=== PATIENT | female | born 1955 | race Caucasian/White ===

== ENCOUNTER 2021-10-22 02:25 | Day surgery (SDC) | payer MEDICARE, SELFPAY ==
[2021-10-19 08:19] VITALS: BMI 39.5
--- NOTE | 2021-10-19 08:53 | PC.NURSE ---
Report to the Outpatient Waiting Room, entrance under the green pavilion located off [facility], at time _1100 on date __10/22/21 . OR Time: 1300 (1 PM)___. - You and your visitor will be asked to self-screen and do not enter if you have any COVID symptoms. - Only one visitor and NO children visitors are allowed at this time. - The patient visitor is requested to leave or wait in car when not with patient due to restrictions. - A mask is required within the hospital. Patients may have clear liquids (water, carbonated beverages, clear teas, apple juice) until 3 hours prior to surgery (1000 AM) with a maximum of 20 ounces. - No food from midnight until time of surgery - Infants may have breast milk until 4 hours before surgery, infant formula 6 hours prior to surgery. - Children will be allowed to drink immediately following surgery. If applicable, please bring a bottle or sippy cup to assist with drinking. Juice, water, soda, and popsicles are readily available. For infants on formula, please bring formula the day of surgery. Pacifiers are allowed. Take the following medications with a SIP of water the morning of surgery: N/A Medications to discontinue per physician N/A Date to take last dose Please no make-up, nail yi, hairspray, perfume, deodorant, or body powder the day of surgery. No jewelry (including any body piercings) or valuables the day of surgery, leave them at home. Please take a shower or bath the night before, or the morning of, surgery with an antibacterial soap. Wear comfortable, loose fitting clothing. Children are encouraged to wear pajamas. - Jewelry must be removed prior to entering the operating room. Rings and piercings that are not removed may be cut off. - The hospital will not accept responsibility for valuables. - Please leave all valuables, including medications, at home the day of surgery. If you are going home after surgery, a licensed milk pickup truck driver must drive you home. - NO public transportation without another adult. - We recommend that an adult stay with you for 24 hours following discharge. - We also recommend that you do not drive, make important decision, drink alcoholic beverages, or take any drugs that were not prescribed by your health care provider for at least 24 hours after your discharge time. For Pediatric surgeries, we recommend two adults accompany the child home (only one inside the building at this time). Follow any additional instructions given to you from your surgeon. If you or anyone in your household have experienced Covid symptoms in the past week, please notify your surgeon or the nurse liaison at the phone number below for possible testing. Telephone instructions given to ____PT and asked if any additional questions and then verbalized understanding. Patient advised to call surgeon office or pre surgery nurse liaison [phone] if any additional questions.
--- NOTE | ~2021-10-22 | XR_ITS ---
EXAMINATION: XR fl guide central line place INDICATION: Port-A-Cath insertion TECHNIQUE: A single fluoroscopic image is submitted for review. Total fluoroscopic time was 37.5 seco nds. COMPARISON: None available FINDINGS: Fluoroscopic image demonstrates a right internal jugular Port-A-Cath ending with its tip in the proximal right atrium. Please refer to procedure note for full details. IMPRESSION: 1. Right internal jugular Port-A-Cath ending with its tip at the proximal right atrium. Reviewed, dictated and finalized at location A.
--- NOTE | ~2021-10-22 | XR_ITS ---
EXAMINATION: XR chest port-a-cath/central INDICATION: Port-A-Cath insertion TECHNIQUE: Portable AP chest at 1430 hours COMPARISON: None available FINDINGS: A right internal jugular Port-A-Cath ends with its tip at the superior cavoatrial junction. No pleural effusion or pneumothorax. The cardiomediastinal silhouette is normal. The lungs are free of acute opacities. IMPRESSION: 1. No acute cardiopulmonary abnormality. 2. Right internal jugular Port-A-Cath ending at the superior cavoatrial junction. No pneumothorax. Reviewed, dictated and finalized at location A. IMPRESSION: 1. No acute cardiopulmonary abnormality. 2. Right internal jugular Port-A-Cath ending at the superior cavoatrial junctio n. No pneumothorax.
[2021-10-22 11:00] VITALS: BP 177/78; PULSE 106; RESP 20; TEMP 37.7; O2SAT 100
--- NOTE | 2021-10-22 11:27 | PM.HPGS ---
History of Present Illness History of Present Illness Consent: Risks, benefits, and alternatives of placement of a Port-A-Cath have been discussed and questions answered. Patient agrees to proceed with procedure. Chief complaint: malignant neoplasm of endometrium Narrative: Anika Syed is a 66 year old white female who had postmenopausal vaginal bleeding and was subsequently found to have endometrial carcinoma. Last month she had a robotic hysterectomy, BSO and sentinel lymph node biopsy of the pelvic and aortic lymph nodes. She has known stage III C2 endometrial carcinoma. She is now working with Dr. Caputo and the radiation oncologist to provide adjuvant therapy. She needs permanent vascular access for chemotherapy. Patient has not had previous neck or chest surgery. Review of Systems Constitutional: Constitutional: Reports no additional constitutional complaints, Reports fatigue and Denies malaise Eyes: Eyes: Denies change in vision and Denies loss of vision ENT: Reports Normal hearing present, Denies change in voice, Denies dizziness, Denies hoarseness and Denies sore throat Cardiovascular: Cardiovascular: Denies chest pain, Denies leg edema and Denies dyspnea Respiratory: Respiratory: Denies cough, Denies dyspnea and Denies wheezing Gastrointestinal: Gastrointestinal: Denies hematochezia, Denies change in bowel habits and Denies heartburn Genitourinary: Genitourinary: Denies urinary frequency and Denies urinary incontinence Neurologic: Reports Normal hearing present, Denies confusion, Denies dizziness, Denies loss of vision, Denies memory loss and Denies seizure-like activity Psychiatric: Psychiatric: Denies confusion, Denies depression and Denies memory loss Endocrine: Endocrine: Denies cold intolerance Comments: History of diet controlled diabetes mellitus. Hematologic/Lymphatic: Hematologic/Lymphatic: Denies easy bleeding and Denies easy bruising Allergic/Immunologic: Allergic/Immunologic: Denies wheezing ON LICENSE OF [facility] Past Medical History Medical History Diabetes mellitus Obesity (BMI 35.0-39.9 without comorbidity) Surgical History Surgical History (Updated 10/22/21 @ 12:17 by Roly Hlil MD) H/O wrist surgery H/O: hysterectomy History of cholecystectomy Social History Social History Smoking status: Never smoker Second hand tobacco smoke exposure: No Alcohol intake: never Substance use: never Substance use type: does not use Spiritual care concerns: No Meds Home Medications and Allergies Home Medications Medication Instructions Recorded Confirmed Type No Home Medications 10/19/21 10/22/21 History Allergies Allergy/AdvReac Type Severity Reaction Status Date / Time No Known Allergies Allergy Verified 10/22/21 12:10 Exam Const: General: cooperative, no acute distress, well developed, alert and other ( obese); No confusion Nutritional Appearance: well nourished Orientation/consciousness: patient oriented x3 and No confusion Limitations: no limitations HENMT: Head: normal to inspection, normocephalic and atraumatic Ears: hearing grossly normal bilaterally General nose exam: Normal external nose present Face and sinus: no edema Mouth: Yes Normal oral and palatal mucosa present and Yes lip normal Throat: posterior oropharynx normal Eyes: General: appearance normal, both eyes and all related structures Sclera: sclerae normal Pupils: Equal, round and reactive pupils present EOM: EOMs intact bilaterally Neck: Neck: normal visual inspection, no lymphadenopathy, trachea midline and supple Other: no scars from previous surgery on the neck or right anterior chest. Resp: Effort & Inspection: normal respiratory effort and able to speak in complete sentences Auscultation: clear to auscultation bilaterally Cardio: Jugular venous distension: no JVD Rate:
[2021-10-22] MEDS: LACTATED RINGERS 1,000 ML 30 ML IV CONT (11:30)
[2021-10-22] MEDS: KETOROLAC 15 MG/ML VIAL (*BKC) IV PUSH (11:45)
[2021-10-22 11:50] LABS: Basophils Percent Auto 0.3 % (0.2-1.2); Eosinophils Absolute Auto 0.2 K/mm3 (0-0.3); Eosinophils Percent Auto 1.7 % (0-4.4); Hematocrit 36.9 % (37.0-47.0); Hemoglobin 12.3 g/dL (12.0-15.0); Immature Granulocyte Absolute 0.04 K/mm3 (0.00-0.031); Immature Granulocyte Percent A 0.4 % (0-0.5); Lymphocytes Absolute Auto 0.95 K/mm3 (0.9-3.2); Lymphocytes Percent Auto 10.6 % (18.3-44.2); Mean Corpuscular HGB Conc 33.3 g/dl (32-36); Mean Corpuscular Hemoglobin 31.2 pg (26-34); Mean Corpuscular Volume 93.7 fl (80-100); Mean Platelet Volume 9.5 fl (7.4-10.4); Monocytes Absolute Auto 0.5 K/mm3 (0.1-0.6); Monocytes Percent Auto 5.3 % (2.6-8.5); Neutrophils Absolute Auto 7.3 K/mm3 (1.3-6.7); Neutrophils Percent Auto 81.7 % (45.5-73.1); Platelet Count Result 180 k/mm3 (150-375); Red Blood Count 3.94 M/mm3 (4.2-5.4); Red Cell Distribution Width 12.7 % (11.5-14.5); White Blood Count 8.9 K/mm3 (4.5-10.0)
[2021-10-22 12:07] LABS: INR 1.1; Prothrombin Time 13.4 Seconds (11.1-14.7)
[2021-10-22 12:08] LABS: Partial Thromboplastin Time 27.9 SECONDS (22.3-36.8)
--- NOTE | 2021-10-22 12:14 | WPDANESEPPF ---
Anes - Initial Pre Proc Eval Procedure: Operation Date: 10/22/21 13:00 Proposed Procedures p Insertion Ricco Cath - Luis Weaver MD Date/Time: 10/22/21 12:14 Surgeon: Luis Weaver MD Pre Op Diagnosis: malignant neoplasm of endometrium Patient Data Age: 66 Gender: F Height: 1.63 m Weight: 104.54 kg Allergies Allergy/AdvReac Type Severity Reaction Status Date / Time No Known Allergies Allergy Verified 10/22/21 12:10 Home Medications Medication Instructions Recorded Confirmed Type No Home Medications 10/19/21 10/22/21 History Laboratory Tests 10/22/21 10/22/21 11:33 11:33 WBC 8.9 K/mm3 K/mm3 (4.5-10.0) RBC 3.94 M/mm3 L M/mm3 (4.2-5.4) Hgb 12.3 g/dL g/dL (12.0-15.0) Hct 36.9 % L % (37.0-47.0) MCV 93.7 fl fl (80-100) MCH 31.2 pg pg (26-34) MCHC 33.3 g/dl g/dl (32-36) RDW 12.7 % % (11.5-14.5) Plt Count 180 k/mm3 k/mm3 (150-375) MPV 9.5 fl fl (7.4-10.4) Immature Gran % (Auto) 0.4 % % (0-0.5) Neut % (Auto) 81.7 % H % (45.5-73.1) Lymph % (Auto) 10.6 % L % (18.3-44.2) [place] % (Auto) 5.3 % % (2.6-8.5) Eos % (Auto) 1.7 % % (0-4.4) Baso % (Auto) 0.3 % % (0.2-1.2) Lymph # (Auto) 0.95 K/mm3 K/mm3 (0.9-3.2) [place] # (Auto) 0.5 K/mm3 K/mm3 (0.1-0.6) Eos # (Auto) 0.2 K/mm3 K/mm3 (0-0.3) Baso # (Auto) 0.0 K/mm3 K/mm3 (0.0-0.1) Abs Immat Gran (auto) 0.04 K/mm3 H K/mm3 (0.00-0.031) Absolute Neuts (auto) 7.3 K/mm3 H K/mm3 (1.3-6.7) Absolute Nucleated RBC 0.0 K/mm3 K/mm3 (0.0-0.012) Nucleated RBC % 0.0 % % (0.0-0.2) PT 13.4 Seconds Seconds (11.1-14.7) INR 1.1 APTT 27.9 SECONDS SECONDS (22.3-36.8) Patient hx anesthesia problems: none Family hx anesthesia problems: none Results Review: All pre-operative results and documents have been reviewed as part of the pre-operative evaluation. [facility] Past Medical History Medical History Diabetes mellitus Obesity (BMI 35.0-39.9 without comorbidity) Surgical History Surgical History (Updated 10/22/21 @ 12:17 by Roly Hill MD) H/O wrist surgery H/O: hysterectomy History of cholecystectomy Social History Social History Smoking status: Never smoker Second hand tobacco smoke exposure: No Alcohol intake: never Substance use: never Substance use type: does not use Spiritual care concerns: No Anes - Eval Final PreProcedure Day of Procedure 10/22/21 12:14 Patient weight: obese Heart: regular rate and rhythm Lungs: clear to auscultation Airway: Mallampati scale class II Neurological: alert and oriented Last oral intake: >/= 8 hours ASA classification: III Emergent: no Anesthetic plan: proceed Anesthesia type and monitoring: general GIVS and standard monitoring Results Review: All pre-operative results and documents have been reviewed as part of the pre-operative evaluation. Informed Consent: The patient's anesthetic plan and its attendant risks and benefits were discussed with the patient/family/POA. Questions were solicited and answers provided to the satisfaction of the patient/family/POA.
--- NOTE | 2021-10-22 12:59 | WPDHPUPDATE1 ---
History and Physical Update Update Date/Time: 10/22/21 12:59 History and Physical has been reviewed, including an updated exam of the patient. There are NO changes in the patient's condition. Risks, benefits, and alternatives of placement of a Ricco- Cath have been discussed and questions answered. Patient agrees to proceed with procedure.
[2021-10-22] MEDS: ceFAZolin 2 GM/D5W 50 ML 2 GM/50 ML BAG IVPB (13:06)
[2021-10-22] MEDS: HEPARIN SODIUM 5,000 UNITS/ML VIAL 5000 UNITS IRRIGATION (13:06)
[2021-10-22] MEDS: BUPIVACAINE/EPINEPHRINE 0.25% 50 ML VIAL 20 ML INFILTRATE (13:06)
--- NOTE | 2021-10-22 14:06 | W.PM.PROC2 ---
Procedure Note - Detailed Date of Procedure 10/22/21 Pre-op Diagnosis malignant neoplasm of endometrium (stage III C2 endometrial carcinoma) Post-op Diagnosis Same Procedure Performed 1. Placement of Ricco-cath. 2. Use of US for vascular access site selection and visualization of needle access to vein. Surgeon Luis Weaver MD Front Desk Administrator Earl TORRES.OR first coat sander Anesthesia Local (with 0.5% Marcaine with epinepherine) and Other (GIVS) Indications Patient needs long-term central venous access for chemotherapy. (see preop H&P). Findings Normal vascular anatomy in the right neck. Description of Procedure Patient was seen and marked in the pre-op area prior to coming to the OR. Patient was brought to the operating room. Patient was placed supine on the operating table and general IV sedation was induced. The nurse store keeper provided And continuous monitoring, oxygen, and IV sedation or general anesthesia with IV sedation as was appropriate for the patient's condition. See anesthesia notes). Patient's head was carefully turned to the left side while in the supine position and the patient's entire neck and anterior chest on both sides was prepped and draped in the usual sterile fashion. Following this the appropriate time-out was completed confirming procedure and patient. We confirmed that all the needed equipment was present in the room including the vascular ultrasound probe in machine. Following this the ultrasound probe was draped into the field and using the probe we carefully identified the carotid artery and jugular vein on the right neck. I then saved an image of the vascular anatomy of the neck, which documented the selected vessels patency and transferred it from the ultrasound machine to the [employer] chart. I marked the skin directly over the right internal jugular vein. I then used an 11 blade knife to make a small bernie in the skin. Following this, using the continuous ultrasound guidance, a Cook needle was placed through the skin incision and on into this vein. I then was able to draw back good dark blood. Once this was completed a guidewire using a J-tip was advanced through the needle and then the needle and the guidewire cover were withdrawn. C-arm fluoroscopy was used to confirm that the guidewire was nicely in the central venous system. Once this was confirmed with the C - arm, I preceded on by making the pocket for the port on the patient's anterior right chest approximately 3 centimeters below the clavicle overlying the chest wall. Local anesthetic was infiltrated into the skin where there was a transverse incision marked out. Incision was made and we made a pocket inferior to the incision with just a little dissection superior. The Smart port was tried in the pocket and seemed to fit well. Following this the catheter which had been placed on a tunneling device was tunneled from the port site on the anterior right chest up to the right neck where the small incision had been made slightly larger with an #11 blade knife. Then the catheter was pulled through so that we would have 15 centimeters to put into the central venous system once the dilation took place. Following this we placed the dilator and sheath over the guidewire in the jugular vein and carefully dilated the tract into the central venous system. The guidewire and dilator were then removed, carefully covering the end of the sheath to prevent air embolus. The end of the catheter which had been removed from the tunneling device and the tip checked was then inserted into the sheath and into the neck. I then carefully pulled the 2 arms of the tear-away sheath away as the retail loan originator assistant held the catheter in position with a DeBakey forceps. Following this we checked the position of the catheter with C-arm fluoroscopy confirming that the tip seemed to be in the distal superior vena cava near the junction with the right atrium. I felt that it was in good position and so the res
[2021-10-22 14:07] VITALS: BP 137/55; PULSE 77; RESP 16; O2SAT 97
[2021-10-22 14:37] VITALS: BP 128/55; PULSE 76; RESP 16
== END 2021-10-22 14:53 | disposition home or self-care (01) ==
PROVIDERS: Visit Provider Surgery
PROC: (CPT 36561; principal; 2021-10-22 13:00)
DX: C54.1 Malignant neoplasm of endometrium (principal); E11.9 Type 2 diabetes mellitus without complications; E66.9 Obesity, unspecified; Z68.39 Body mass index [BMI] 39.0-39.9, adult; Z90.49 Acquired absence of other specified parts of digestive tract
CPT/HCPCS: 36561; 36415; 76937; 77001; 85025; 85610; 85730; 99213; C1788; G0463; J0690; J1100; J1644; J1885; J2250; J2370; J2405; J2704; J2765; J3010; J7030; J7120

== ENCOUNTER 2022-05-23 07:16 | Outpatient (CLI) | payer MEDICARE, OTHER, SELFPAY ==
--- NOTE | ~2022-05-23 | CT_ITS ---
Clinical Indication: Endometrial carcinoma CT Scan of the Chest, Abdomen, and Pelvis with Contrast: Technique: Contiguous sections were acquired throughout the chest, abdomen, and pelvis after intraven ous administration of 100 cc of Omnipaque 350. Dose reduction technique was used on this scan by radha goins automated exposure control and iterative reconstruction technique. The dose-length product (DL P) was 1650.37 mGy-cm. Findings: There is no evidence of any significant mediastinal, hilar or axillary lymphadenopathy. Coronary claudy ry calcifications are present. No aortic aneurysm or dissection seen. No large central pulmonary embo darryl. Moderate hiatal hernia noted. There is no evidence of pleural or pericardial effusion. 4 mm left upper lobe pulmonary nodule noted (axial image 51). There are several tiny grouped/clustere d nodules at the extreme right lung base (axial images 87-91). There is an additional 4 mm nodule at the right lower lobe (axial image 55). The liver, spleen, pancreas, adrenals and kidneys are within normal limits. Cholecystectomy clips are noted. No evidence of aortic aneurysm. No lymphadenopathy. No bowel obstruction or bowel wall thickening. There is no evidence to suggest acute appendicitis. Ve ry small fat-containing umbilical hernia noted. Urinary bladder is unremarkable. Patient is status post hysterectomy. No pelvic mass identified. Impression: Subcentimeter pulmonary nodules, as noted above, indeterminate. Correlation with any prior imaging st udies of the chest, if available, would be useful to assess for chronicity of these nodules. Given hi story of neoplasm, consider follow-up CT in 3-6 months to reassess. No evidence for active malignancy or metastatic disease in the abdomen/pelvis. Status post hysterectomy. Very small fat-containing umbilical hernia. Reviewed, dictated and finalized at [facility]. Impression: Subcentimeter pulmonary nodules, as noted above, indeterminate. Correlation wit h any prior imaging studies of the chest, if available, would be useful to asse ss for chronicity of these nodules. Given history of neoplasm, consider follow- up CT in 3-6 months to reassess. No evidence for active malignancy or metastatic disease in the abdomen/pelvis. Status post hysterectomy. Very small fat-containing umbilical hernia.
== END 2022-05-23 07:17 | disposition home or self-care (01) ==
PROVIDERS: Visit Provider Internal Medicine Hematology & Oncology
DX: C54.1 Malignant neoplasm of endometrium (principal); K42.9 Umbilical hernia without obstruction or gangrene; R91.8 Other nonspecific abnormal finding of lung field
CPT/HCPCS: 71260; 74177; Q9967

== ENCOUNTER 2022-09-19 09:04 | Outpatient (CLI) | payer MEDICARE, OTHER, SELFPAY ==
--- NOTE | ~2022-09-19 | CT_ITS ---
Clinical Indication: Endometrial carcinoma CT Scan of the Chest, Abdomen, and Pelvis with Contrast: Technique: Contiguous sections were acquired throughout the chest, abdomen, and pelvis after intraven ous administration of 100 cc of Omnipaque 350. Dose reduction technique was used on this scan by uti lizing automated exposure control and iterative reconstruction technique. The dose-length product (DL P) was 1681.45 mGy-cm. COMPARISON: 05/23/2022 Findings: There is no evidence of any significant mediastinal, hilar or axillary lymphadenopathy. Moderate hiat al hernia noted. No aortic aneurysm or dissection. There is no evidence of pleural or pericardial effusion. 6 mm pleural-based nodular opacity present at the right lower lobe (axial image 61). Stable 4 mm left lower lobe pulmonary nodule (axial image 61). The liver, spleen, pancreas, adrenals and kidneys are within normal limits. Cholecystectomy clips are present. No evidence of aortic aneurysm. No lymphadenopathy. No bowel obstruction or bowel wall thickening. There is no evidence to suggest acute appendicitis. Urinary bladder is unremarkable. No adnexal mass seen. No ascites. Impression: Subcentimeter pulmonary nodules are similar to prior exam. No evidence for metastatic disease/malignancy in the abdomen or pelvis. Moderate hiatal hernia. Reviewed, dictated and finalized at [facility]. Impression: Subcentimeter pulmonary nodules are similar to prior exam. No evidence for metastatic disease/malignancy in the abdomen or pelvis. Moderate hiatal hernia.
[2022-09-19 09:29] LABS: Estimated Glomerular Filt Rate > 60
== END 2022-09-19 09:05 | disposition home or self-care (01) ==
PROVIDERS: Visit Provider Internal Medicine Hematology & Oncology
DX: C54.1 Malignant neoplasm of endometrium (principal); K44.9 Diaphragmatic hernia without obstruction or gangrene; R91.8 Other nonspecific abnormal finding of lung field
CPT/HCPCS: 71260; 74177; Q9967

== ENCOUNTER 2022-12-23 08:42 | Outpatient (CLI) | payer MEDICARE, OTHER, SELFPAY ==
--- NOTE | ~2022-12-23 | CT_ITS ---
Clinical Indication: Endometrial neoplasm CT Scan of the Chest, Abdomen, and Pelvis with Contrast: Technique: Contiguous sections were acquired throughout the chest, abdomen, and pelvis after intraven ous administration of 100 cc of Omnipaque 350. Dose reduction technique was used on this scan by radha atkinsing automated exposure control and iterative reconstruction technique. The dose-length product (DL P) was 1623.24 mGy-cm. COMPARISON: 09/19/2022 Findings: There is no evidence of any significant mediastinal, hilar or axillary lymphadenopathy. The mediastin al soft tissues and vascular structures appear normal. Moderate to large hiatal hernia noted. There is no evidence of pleural or pericardial effusion. Stable pleural-based nodule at the right lower lobe (axial image 63). Calcified granulomas are noted. . The liver, spleen, pancreas, adrenals and kidneys are within normal limits. Cholecystectomy clips are present. No evidence of aortic aneurysm. No lymphadenopathy. No bowel obstruction or bowel wall thickening. There is no evidence to suggest acute appendicitis. Urinary bladder is unremarkable. Patient is status post hysterectomy. No pelvic mass seen. Impression: No definite evidence for active malignancy or metastatic disease. Stable subcentimeter pleural-based nodule the right lower lobe. Moderate to large hiatal hernia, unchanged. Reviewed, dictated and finalized at location . Impression: No definite evidence for active malignancy or metastatic disease. Stable subcentimeter pleural-based nodule the right lower lobe. Moderate to large hiatal hernia, unchanged.
[2022-12-23 09:07] LABS: Estimated Glomerular Filt Rate > 60
== END 2022-12-23 08:43 | disposition home or self-care (01) ==
PROVIDERS: Visit Provider Internal Medicine Hematology & Oncology
DX: C54.1 Malignant neoplasm of endometrium (principal); K44.9 Diaphragmatic hernia without obstruction or gangrene
CPT/HCPCS: 71260; 74177; Q9967

== ENCOUNTER 2023-03-18 08:00 | Outpatient (CLI) | payer MEDICARE, OTHER, SELFPAY ==
--- NOTE | ~2023-03-18 | CT_ITS ---
CT of the Abdomen and Pelvis: Indication: Endometrial carcinoma Technique: 2.5 mm axial scans were obtained through the abdomen and pelvis following intravenous adm inistration of 100 cc of Omnipaque 350. Dose reduction technique was used on this scan by utilizing a utomated exposure control and iterative reconstruction technique. The dose-length product (DLP) was 1 462.25 mGy-cm. COMPARISON: 12/23/2022 Findings: Scans through the lung bases demonstrate stable subcentimeter left basilar pulmonary nodul e. Moderate hiatal hernia present. The liver, spleen, pancreas, adrenals and kidneys are within normal limits. Cystectomy clips are pres ent. There are atherosclerotic calcifications of the aorta. No lymphadenopathy. No bowel obstruction or bowel wall thickening. There is no evidence to suggest acute appendicitis. Images through the pelvis were performed. Urinary bladder unremarkable. Patient is status post hyster ectomy. No pelvic mass seen. No ascites. Impression: No evidence for active malignancy or metastatic disease. Status post hysterectomy. Moderate hiatal hernia. Reviewed, dictated and finalized at [facility]. R REPAIRER Impression: No evidence for active malignancy or metastatic disease. Status post hysterecto my. Moderate hiatal hernia.
[2023-03-18 08:19] LABS: Estimated Glomerular Filt Rate > 60
== END 2023-03-18 08:01 | disposition home or self-care (01) ==
LOC: ANHIMG 08:04
PROVIDERS: Visit Provider Internal Medicine Hematology & Oncology
DX: C54.1 Malignant neoplasm of endometrium (principal); K44.9 Diaphragmatic hernia without obstruction or gangrene; Z90.710 Acquired absence of both cervix and uterus
CPT/HCPCS: 74177; Q9967

== ENCOUNTER 2023-11-18 08:37 | Outpatient (CLI) | payer MEDICARE, OTHER, SELFPAY ==
--- NOTE | ~2023-11-18 | CT_ITS ---
EXAMINATION: CT abdomen pelvis w con DATE: 11/18/2023 09:13 INDICATION: Chronic anemia. TECHNIQUE: Computed tomography (CT) of the abdomen and pelvis was performed with 100 mL Omnipaque 350 intravenous contrast. Automated exposure control and iterative reconstruction technique were employe d. The dose-length product was 1565.59 mGy-cm. COMPARISON: CT abdomen and pelvis 03/18/2023 FINDINGS: The visualized portions of the lung bases demonstrate mild atelectasis. Calcified right flor g nodules are consistent with old granulomatous disease. There are chronic small nodules in right flor g lower lobe, likely benign. No pleural effusion. The heart size is normal. There are coronary artery calcifications. No pericardial effusion. There is a moderate-sized sliding hiatal hernia. The liver is normal. There are changes of cholecystectomy. Calcifications in the spleen are consistent with old granulomatous disease. The pancreas, adrenal glands, and kidneys are normal. There is diverticulosis of the colon without evidence of diverticulitis. The appendix is not visualized. There are no pathol ogically enlarged lymph nodes. There is no free intraperitoneal fluid. Aortic atherosclerosis is note d. There is moderate lower lumbar spondylosis. IMPRESSION: 1. Moderate-sized sliding hiatal hernia. Reviewed, dictated and finalized at location A.
[2023-11-18 09:09] LABS: Estimated Glomerular Filt Rate > 60
[2023-11-18 10:27] LABS: Basophils Percent Auto 0.4 % (0.2-1.2); Eosinophils Absolute Auto 0.3 K/mm3 (0-0.3); Eosinophils Percent Auto 4.7 % (0-4.4); Hematocrit 36.4 % (37.0-47.0); Hemoglobin 11.7 g/dL (12.0-15.0); Immature Granulocyte Absolute 0.06 K/mm3 (0.00-0.031); Immature Granulocyte Percent A 0.9 % (0-0.5); Lymphocytes Absolute Auto 0.92 K/mm3 (0.9-3.2); Lymphocytes Percent Auto 13.5 % (18.3-44.2); Mean Corpuscular HGB Conc 32.1 g/dl (32-36); Mean Corpuscular Hemoglobin 31.4 pg (26-34); Mean Corpuscular Volume 97.6 fl (80-100); Mean Platelet Volume 8.6 fl (7.4-10.4); Monocytes Absolute Auto 0.4 K/mm3 (0.1-0.6); Monocytes Percent Auto 5.4 % (2.6-8.5); Neutrophils Absolute Auto 5.1 K/mm3 (1.3-6.7); Neutrophils Percent Auto 75.1 % (45.5-73.1); Platelet Count Result 168 k/mm3 (150-375); Red Blood Count 3.73 M/mm3 (4.2-5.4); Red Cell Distribution Width 13.7 % (11.5-14.5); White Blood Count 6.8 K/mm3 (4.5-10.0)
[2023-11-18 10:49] LABS: Alanine Aminotransferase 26 U/L (6-35); Albumin Level 4.2 g/dL (3.5-5.1); Alkaline Phosphatase 114 U/L (38-126); Anion Gap 9 mmol/L (4-12); Aspartate Amino Transferase 29 U/L (14-36); Bilirubin,Total 0.7 mg/dL (0.2-1.3); Blood Urea Nitrogen 15 mg/dL (7-17); Calcium 9.4 mg/dL (8.4-10.2); Carbon Dioxide 32 mmol/L (22-30); Chloride 99 mmol/L (98-107); Estimated Glomerular Filt Rate > 60; Glucose 154 mg/dL (65-110); Potassium 4.4 mmol/L (3.4-5.0); Sodium 140 mmol/L (137-145)
[2023-11-18 11:07] LABS: Iron 78 ug/dL (37-170)
[2023-11-18 11:16] LABS: Percent Iron Saturation 26 % (20-50)
[2023-11-19 16:03] LABS: CA-125 7 U/mL (<35)
== END 2023-11-18 08:38 | disposition home or self-care (01) ==
PROVIDERS: Visit Provider Internal Medicine Hematology & Oncology
DX: C54.1 Malignant neoplasm of endometrium (principal); D64.9 Anemia, unspecified; K44.9 Diaphragmatic hernia without obstruction or gangrene
CPT/HCPCS: 36415; 74177; 80053; 82728; 83540; 83550; 85025; 86304; Q9967

== ENCOUNTER 2024-03-23 08:56 | Outpatient (CLI) | payer MEDICARE, OTHER, SELFPAY ==
--- NOTE | ~2024-03-23 | CT_ITS ---
CT abdomen pelvis w con Ordering provider: Nader Caputo MD History: 68 years Female with . MAL DENTON OF ENDOMETRIUM . Comparison: November 18, 2023 Technique: CT abdomen and pelvis with IV and without oral contrast. Automated exposure control and it erative reconstruction technique were employed. The dose-length product was 1498.32 mGy-cm. 100 mL Om nipaque 350 was given IV. Findings: VISUALIZED LOWER CHEST: Tiny nodule in the right lower lobe measuring [address] follow-up is advised. UPPER ABDOMINAL ORGANS: Liver: Fat infiltration. Hepatomegaly. Gallbladder: Status post cholecystectomy. Spleen: Normal. Stomach/duodenum: Sliding hiatus hernia. Pancreas: Normal. Adrenals: Normal. Kidneys: Normal. PELVIC ORGANS: The bladder is normal. BOWEL AND MESENTERY: Colon: No evidence of diverticulitis. Fecal material seen in the right side of the colon suggestive o f constipation. The appendix is not demonstrated. Small Bowel: Normal. No obstruction. Peritoneum/mesentery: No free air or free fluid. No mesenteric lymphadenopathy. RETROPERITONEUM: Mild atheromatous disease of the abdominal aorta. No retroperitoneal lymphadenopat hy. MUSCULOSKELETAL: Superficial soft tissues: Tiny fat-containing umbilical hernia. The superficial soft tissues are norm al. Bones: Age appropriate degenerative changes of the spine. Bilateral sacroiliitis. IMPRESSION: 1. Hepatomegaly with fat infiltration. 2. Large sliding hiatus hernia. 3. No evidence of appendicitis, diverticulitis or intestinal obstruction. 4. Constipation. Reviewed, dictated and finalized at location A. UM PREPARATOR
[2024-03-23 09:25] LABS: Estimated Glomerular Filt Rate > 60
== END 2024-03-23 08:57 | disposition home or self-care (01) ==
LOC: ANHIMG 08:59
PROVIDERS: Visit Provider Internal Medicine Hematology & Oncology
DX: C54.1 Malignant neoplasm of endometrium (principal); K76.0 Fatty (change of) liver, not elsewhere classified; K44.9 Diaphragmatic hernia without obstruction or gangrene
CPT/HCPCS: 74177; Q9967

== ENCOUNTER 2024-09-22 08:27 | Outpatient (CLI) | payer MEDICARE, OTHER, SELFPAY ==
--- NOTE | ~2024-09-22 | CT_ITS ---
CT of the Abdomen and Pelvis: Indication: Endometrial neoplasm Technique: 2.5 mm axial scans were obtained through the abdomen and pelvis following intravenous adm inistration of 100 cc of Omnipaque 350. Dose reduction technique was used on this scan by utilizing a utomated exposure control and iterative reconstruction technique. The dose-length product (DLP) was 1 610.56 mGy-cm. COMPARISON: 03/23/2024 Findings: Scans through the lung bases demonstrate moderate to large hiatal hernia. There is diffuse hepatic steatosis. Cholecystectomy clips are present. The spleen, pancreas, adrenals and kidneys are within normal limits. No evidence of aortic aneurysm. No lymphadenopathy. No bowel obstruction or bowel wall thickening. There is no evidence to suggest acute appendicitis. Images through the pelvis were performed. Urinary bladder unremarkable. Status post hysterectomy. No pelvic mass. No ascites. Impression: No evidence for active malignancy or metastatic disease. Diffuse hepatic steatosis. Moderate to large hiatal hernia. Reviewed, dictated and finalized at [facility]. Impression: No evidence for active malignancy or metastatic disease. Diffuse hepatic steatosis. Moderate to large hiatal hernia.
--- OUTSIDE RECORDS SUMMARY | 2024-09-22 08:36 | XMS_ITS ---
Author Organization [facility] Administrative Offices Address [address] [place] [id number] Care Team Providers Care Furniture And Bedding Inspector Name Role Phone Medhat Colbert MD Primary Care Provider [phone] Active Problems Problem Noted Date Diagnosed Date Dietary vitamin B12 deficiency anemia 04/16/2022 Endometrial carcinoma 10/17/2021 Current Treatment and Therapy Plans No current plan information found. Past Treatment and Therapy Plans No past plan information found. Lifetime Dose Tracking * Chemical Lifetime Dose Automatic Entry Manual Entr y Effective Dose 30.5 mSv 30.5 mSv 0 mSv Total DLP 1,655 DLP 1,655 DLP 0 DLP CTDIvol Max 21.8 mGy 21.8 mGy 0 mGy CTDIvol Min 16.5 mGy 16.5 mGy 0 mGy
--- OUTSIDE RECORDS SUMMARY | 2024-09-22 08:36 | XMS_ITS | Clinical Summary ---
Author Organization [facility] Address [address] [place] [address] Care Team Providers Care Laborer Syrup Machine Name Role Phone Unavailable Primary Care Provider Unavailabl e Source Comments [facility],non-owned Affiliates and Associated Physician Practices is amultiple site organization consisting of ambulatory clinics and hospital sitesin [place], [place], [place] and [place]. This disclosure is being madepursuant to the Care Everywhere program and may not contain all information available regarding this patient. Last updated 17.[facility] Allergies No known active allergies Medications * Be aware that medications may not be up to date on this document. Alwaysverify current medications with the patient. methocarbamol (ROBAXIN) 500 MG tablet Take 1 tablet by mouth nightly as needed for Muscle Spasms 10 tablet 11/04/2017 Active Social History Tobacco Use Types Packs/Day Years Used Date Smoking Tobacco: Never Smokeless Tobacco: Never Alcohol Use Standard Drinks/Week Comments No 0 (1 standard drink = 0.6 oz pur e alcohol) Comments Unknown Sex and Gender Information Value Date Recorded Sex Assigned at Not on file Legal Sex Female 3:44 PM CDT Gender Identity Not on file Sexual Orientation Not on file Last Filed Vital Signs Vital Sign Reading Time Taken Comments Blood Pressure 177/74 11/04/2017 3:53 PM CDT Pulse 91 11/04/2017 3:53 PM CDT Temperature 36.7 C (98 F) 11/04/2017 3:53 PM CDT Respiratory Rate 16 11/04/2017 3:53 PM CDT Oxygen Saturation 100% 11/04/2017 3:53 PM CDT Inhaled Oxygen Concentration - - Weight 124.3 kg (274 lb) 11/04/2017 3:53 PM CDT Height 162.6 cm (5' 4) 11/04/2017 3:53 PM CDT Body Mass Index 47.03 11/04/2017 3:53 PM CDT Plan of Treatment Health Maintenance Due Date Last Done Comments BONE DENSITY TESTING 1956 COLOGUARD (AGES 45-75) - COL ON CA SCREENING 1956 COLON MONITORING 1956 COLONOSCOPY - COLON CA SCREENING 1956 CT COLONOGRAPHY - COLON CA SCREENING 1956 Colorectal Cancer Screening 1956 FIT - COLON CA SCREENING 1956 FLEX SIG - COLON CA SCREENING 1956 LIPID TESTING 1956 MAMMOGRAM 1956 HEPATITIS C SCREENING 10/14/1974 DTAP/TDAP/TD VACCINES (1 - Tdap) 10/19/1975 PNEUMOCOCCAL VACCINE 50+ (1 of 1 - PCV) 2006 ZOSTER VACCINE (1 of 2) 2006 COVID-19 VACCINE (1 - 2023-2 5 season) 2023 DEPRESSION SCREENING 03/10/2024 INFLUENZA VACCINE (#1) 2024 Respiratory Syncytial Virus (RSV) Vaccine Pt: or over 60 yrs (1 - 1-dose 75+ series) 10/19/2031 HEPATITIS B VACCINE Aged Out No longe r eligible based on patient's age to complete this topic HIB VACCINE Aged Out No longer eligi ble based on patient's age to complete this topic HPV VACCINE Aged Out No longer eligi ble based on patient's age to complete this topic MENINGOCOCCAL (Group B) VACC INE SHARED DECISION-MAKING Aged Out No longer eligibl e based on patient's age to complete this topic MENINGOCOCCAL GROUPS A/C/Y/W VACCINE Aged Out No longer eligible b ased on patient's age to complete this topic Insurance [employer]
--- OUTSIDE RECORDS SUMMARY | 2024-09-22 08:36 | XMS_ITS | Encounter Summary ---
Author Organization [facility] Address [address] [place] [address] Care Team Providers Care Internal Review And Audit Compliance Name Role Phone Medhat Colbert MD Primary Care Provider [phone] Encounter Details Date Type Department Care Team (Late Contact Info) Description 09/22/2024 External Device Data [facility]CTION Provider, Abstract NO ADDRESS ON FILE Social History Tobacco Use Types Packs/Day Years Used Date Smoking Tobacco: Never Smokeless Tobacco: Never Alcohol Use Standard Drinks/Week Comments Not Currently 0 (1 standard drink = 0.6 oz pur e alcohol) Comments No Sex and Gender Information Value Date Recorded Sex Assigned at Not on file Legal Sex Female 9:04 AM CDT Gender Identity Not on file Sexual Orientation Not on file documented as of this encounter Plan of Treatment Upcoming Encounters Date Type Department Care Team (Late Contact Info) Description 10/01/2024 8:45 AM CDT Office Visit [facility] Oncology and Hematology - [place] [address] [facility] [address] [place] [address] Nader Caputo MD [address] [facility] [address] [place] [address] documented as of this encounter Visit Diagnoses Not on filedocumented in this encounter Care Teams Internal Review And Audit Compliance Relationship Specialty Start Date End Date Medhat Colbert MD [address] [place] [address] PCP - General Internal Medicine 09/26/22 documented as of this encounter
--- OUTSIDE RECORDS SUMMARY | 2024-09-22 08:36 | XMS_ITS | Clinical Summary ---
Author Organization [facility] Administrative Offices Address [address] [place] [phone] Care Team Providers Care Hopper Filler Name Role Phone Medhat Colbert MD Primary Care Provider [phone] Allergies No known active allergies Medications CALCIUM ORAL Take by mouth. Active CALCIUM CARBONATE-VITAMI N D3 ORAL Take by mouth. Active IRON ORAL Take by mouth. Active Active Problems Problem Noted Date Diagnosed Date Dietary vitamin B12 deficiency anemia 04/16/2022 Endometrial carcinoma 10/17/2021 Encounters Date Type Department Care Team Description 09/22/2024 External Device Data [facility] ABSTRACTION Provider, Abstract 08/25/2024 External Device Data [facility] Provider, Abstract 07/27/2024 External Device Data [facility]CTION Provider, Abstract from Last 3 Months Immunizations Immunization Administration Dates Next Due (PFIZER REJI)(12 YR UP PRIMA RY SERIES) COVID-19 VACCINE - EMERGENCY USE AUTHORIZATION, MRNA, REJI(PF) 30 MCG/0.3 ML IM SUSP 05/04/2021,2020,09/27/2020 Family History Medical History Relation Name Comments Cancer Mother Diabetes Mother Heart Disease Mother Relation Name Status Comments Brother Alive Father Mother Alive Sister 1 Alive Sister 2 Alive Son Alive Social History Tobacco Use Types Packs/Day Years Used Date Smoking Tobacco: Never Smokeless Tobacco: Never Tobacco Cessation:Counseling Given: Not Answered Alcohol Use Standard Drinks/Week Comments Not Currently 0 (1 standard drink = 0.6 oz pur e alcohol) Comments No Sex and Gender Information Value Date Recorded Sex Assigned at Not on file Legal Sex Female 9:04 AM CDT Gender Identity Not on file Sexual Orientation Not on file Last Filed Vital Signs Vital Sign Reading Time Taken Comments Blood Pressure 151/83 03/30/2024 8:51 AM DIETARY SERVER Pulse 79 03/30/2024 8:51 AM DIETARY SERVER Temperature 36.2 C (97.1 F) 03/30/2024 8:51 AM DIETARY SERVER Respiratory Rate 16 03/30/2024 8:51 AM DIETARY SERVER Oxygen Saturation 96% 03/30/2024 8:51 AM DIETARY SERVER Inhaled Oxygen Concentration - - Weight 122 kg (269 lb) 03/30/2024 8:51 AM DIETARY SERVER Height 162.6 cm (5' 4) 05/22/2023 10:43 AM CDT Body Mass Index 46.17 05/22/2023 10:43 AM CDT Plan of Treatment Upcoming Encounters Date Type Department Care Team (Late st Contact Info) Description 10/01/2024 8:45 AM CDT Office Visit [facility] Oncology and Hematology [facility] [address] [facility] [address] [place] [address] Nader Caputo MD [address] [facility] [address] [place] [address] Health Maintenance Due Date Last Done Comments DIABETES ANNUAL FOOT EXAM 1974 DIABETES ANNUAL RETINAL EXAM 1974 DIABETES MICROALBUMIN ANNUAL SCREEN 1974 LDL CHOLESTEROL ANNUAL 1974 DTAP/TDAP/TD VACCINES (1 - Tdap) 10/19/1975 Traditional Medicare (ACO) A nnual Wellness Visit 10/19/1975 ZOSTER VACCINE (1 of 2) 10/19/1975 FIT-DNA Q 3 years 2001 FIT/FOBT Q 1 year 2001 Flex Sig/CT Colonography Q 5 years 2001 RSV VACCINE (60+ or ) (1 - Risk 60-74 years 1-dose series) 2016 COVID-19 Vaccine (4 - 2023-2 5 season) 2023 05/04/2021, 2020, 09/27/2020 DIABETES HBA1C Q 6 MONTHS 03/18/20242024, 09/16/2023, 03/17/2023, Additional history exists INFLUENZA VACCINE (#1) 2024 BREAST CANCER SCREENING 10/23/2024 10/24/19 24, 10/24/2023, 2021, Additional history exists OSTEOPOROSIS SCREENING 10/22/2027 10/21/2022 COLORECTAL SCREENING 01/13/2034 01/14/2024 Colorectal Cancer Screening 01/13/2034 PNEUMOCOCCAL VACCINE 50+ YEARS Completed 03/21/2023 Medical Devices Implanted Type Area Manager Insurance Device Identifier Shelf Expiration Date Model / Serial / Lot Hemostat Surg Snow 2x4in 2081 [id number] Implanted:Qty : 1 on 09/18/2021 by Mitesh Brousasrd MD at [facility] N/A: Pelvis [employer] 06/08/20232081 / / [id number] Insurance RX [employer] RX Member Subscriber Plan / Payer (Ef fective for All Dates) Name:Anika Syed Relation to Subscriber:Self Name:Anika Syed Payer ID:Not on file Group ID:[id number] Type:RX Commercial Address: [place], [place] RX [employer] PLANS (INTERNAL) [facility] MEDICARE PART A AND [employer] MEDICARE PART A AND [employer] Care Teams Hopper Filler Relationship Specialty Start Date End Date Medhat Colbert MD [address] [place] [address] PCP - General Internal Medicine 09/26/22
== END 2024-09-22 08:28 | disposition home or self-care (01) ==
PROVIDERS: Visit Provider Internal Medicine Hematology & Oncology
DX: K76.0 Fatty (change of) liver, not elsewhere classified (principal); K44.9 Diaphragmatic hernia without obstruction or gangrene; C54.1 Malignant neoplasm of endometrium
CPT/HCPCS: 74177; Q9967